=== PATIENT | female | born 1965 | race Caucasian/White ===

== ENCOUNTER → 2017-08-25 16:03 | Outpatient (CLI) | payer MEDICARE, SELFPAY ==
[2017-08-25 17:28] LABS: Absolute Lymphocyte Count 0.81 X10^3/ul (0.83-4.51); Basophil# 0.03 X10^3/uL; Basophil% 0.7 % (0-1); Eosinophil# 0.11 X10^3/uL; Eosinophils% 2.6 % (0-5); Hematocrit 40.7 % (37-47); Hemoglobin 13.4 g/dl (12.0-15.0); Lymphocyte # 0.81 X10^3/ul (4.0); Lymphocyte % 18.9 % (19-41); Mean Corp Hgb Conc 32.9 g/gl (32-36); Mean Corpuscular Hgb 31.1 pg (27.0-32.0); Mean Corpuscular Volume 94.4 fL (81-99); Monocyte# 0.38 X10^3/uL; Monocyte% 8.9 % (0-10); Neutrophil # 2.95 X10^3/uL (2.7-7.7); Neutrophil % 68.9 % (47-70); Platelet Count 197 K/mm3 (150-450); RBC Distribution Width CV 12.8 % (11.6-14.6); RBC Distribution Width SD 44.2 fl (35.1-43.9); Red Blood Count 4.31 M/mm3 (4.2-5.4); White Blood Count 4.3 K/mm3 (4.4-11.0)
[2017-08-25 17:44] LABS: POSITIVE COUNT NO; POSITIVE DIFFERENTIAL NO; POSITIVE MORPHOLOGY NO
[2017-08-25 18:08] LABS: ALB/GLOB Ratio 1.2 RATIO (0.9-2.4); AST(SGOT) 36 U/L (15-37); Alanine Aminotransfer ALT/SGPT 58 U/L (13-56); Albumin, Serum 3.6 g/dL (3.2-5.0); Alkaline Phosphatase 53 U/L (45-117); Anion Gap 9 (5-15); BUN 7 mg/dL (7-18); BUN/Creat Ratio 9.8 RATIO (10-20); Calcium,Total 7.6 mg/dL (8.5-10.1); Chloride 109 mmol/L (98-107); Creatinine, Serum 0.71 mg/dL (0.55-1.02); EST Glomerular Filtration Rate 92 mL/min (>60); Est Glom Filt Rate - Afr Amer 111 mL/min (>60); Globulin 3.1 g/dL (2.2-4.2); Glucose 94 mg/dL (74-106); Potassium 3.2 mmol/L (3.5-5.1); Protein, Total 6.7 g/dL (6.4-8.2); Sodium Level 140 mmol/L (136-145); Thyroid Stim Hormone (TSH) 0.62 uIU/mL (0.358-3.74)
[2017-08-27 11:11] LABS: Hep C Antibodies <0.1 s/co ratio (0.0-0.9)
== END ==
PROVIDERS: Family Provider Family Medicine Geriatric Medicine; PCP Family Medicine Geriatric Medicine; Visit Provider Family Medicine Geriatric Medicine
DX: Z13.89 Encounter for screening for other disorder (principal); I10 Essential (primary) hypertension; R68.83 Chills (without fever)
CPT/HCPCS: 36415; 80053; 84443; 85025; 86803; 87633

== ENCOUNTER → 2017-11-30 16:37 | Outpatient (CLI) | payer MEDICARE, SELFPAY ==
[2017-11-30 17:42] LABS: Absolute Lymphocyte Count 1.31 X10^3/ul (0.83-4.51); Absolute Neutrophil Count 3.9 X10^3/uL (2.0-7.7); Basophil# 0.03 X10^3/uL; Basophil% 0.5 % (0-1); Eosinophil# 0.09 X10^3/uL; Eosinophils% 1.5 % (0-5); Hematocrit 43.2 % (37-47); Hemoglobin 14.3 g/dl (12.0-15.0); Lymphocyte # 1.31 X10^3/ul (4.0); Lymphocyte % 22.1 % (19-41); Mean Corp Hgb Conc 33.1 g/gl (32-36); Mean Corpuscular Hgb 31.6 pg (27.0-32.0); Mean Corpuscular Volume 95.4 fL (81-99); Monocyte# 0.56 X10^3/uL; Monocyte% 9.4 % (0-10); Neutrophil # 3.94 X10^3/uL (2.7-7.7); Neutrophil % 66.3 % (47-70); Platelet Count 207 K/mm3 (150-450); RBC Distribution Width CV 13.3 % (11.6-14.6); Red Blood Count 4.53 M/mm3 (4.2-5.4); White Blood Count 5.9 K/mm3 (4.4-11.0)
[2017-11-30 17:45] LABS: POSITIVE COUNT NO; POSITIVE DIFFERENTIAL NO; POSITIVE MORPHOLOGY NO
[2017-11-30 17:48] LABS: Erythrocyte Sedimentation Rate 5 mm/hr (0-30)
[2017-11-30 18:16] LABS: ALB/GLOB Ratio 1.1 RATIO (0.9-2.4); AST(SGOT) 20 U/L (15-37); Alanine Aminotransfer ALT/SGPT 41 U/L (13-56); Albumin, Serum 3.8 g/dL (3.2-5.0); Alkaline Phosphatase 50 U/L (45-117); Anion Gap 9 (5-15); BUN 14 mg/dL (7-18); BUN/Creat Ratio 21.5 RATIO (10-20); CRP < 2.90 mg/L (0.0-3.0); Calcium,Total 8.7 mg/dL (8.5-10.1); Chloride 103 mmol/L (98-107); Creatinine, Serum 0.65 mg/dL (0.55-1.02); EST Glomerular Filtration Rate 101 mL/min (>60); Est Glom Filt Rate - Afr Amer 123 mL/min (>60); Globulin 3.6 g/dL (2.2-4.2); Glucose 89 mg/dL (74-106); Potassium 4.2 mmol/L (3.5-5.1); Protein, Total 7.4 g/dL (6.4-8.2); Sodium Level 140 mmol/L (136-145)
== END ==
PROVIDERS: Family Provider Family Medicine Geriatric Medicine; PCP Family Medicine Geriatric Medicine; Visit Provider Family Medicine Geriatric Medicine
DX: I10 Essential (primary) hypertension (principal); M35.3 Polymyalgia rheumatica
CPT/HCPCS: 36415; 80053; 84443; 85025; 85652; 86140

== ENCOUNTER → 2017-12-02 16:10 | Outpatient (CLI) | payer MEDICARE, SELFPAY ==
--- NOTE | 2017-12-02 16:16 | US_ITS ---
STUDY: Head/neck soft tissue REASON FOR EXAM: Female, 52 years old. Palpable lump. Tenderness. TECHNIQUE: Ultrasound evaluation of the neck performed with real-time and static gaspar-scale imaging. COMPARISON: None. FINDINGS: On the right there is a level 5 lymph node measuring 0.6 x 0.4 x 0.5 cm. On the left a level 5 lymph node node measures 1.2 x 0.8 x 0.7 cm. US/Head/Neck Soft Tissue IMPRESSION: Mildly enlarged left cervical lymph node. Electronically Signed: Bartolo Anglin MD at 8:02 EDT , Service support ,
== END ==
PROVIDERS: Family Provider Family Medicine Geriatric Medicine; PCP Family Medicine Geriatric Medicine; Visit Provider Family Medicine Geriatric Medicine
DX: R59.0 Localized enlarged lymph nodes (principal)
CPT/HCPCS: 76536

== ENCOUNTER → 2018-03-23 13:06 | Outpatient (CLI) | payer MEDICARE, SELFPAY ==
[2018-03-23 16:46] LABS: Absolute Lymphocyte Count 1.47 X10^3/ul (0.83-4.51); Absolute Neutrophil Count 2.7 X10^3/uL (2.0-7.7); Basophil# 0.03 X10^3/uL; Basophil% 0.6 % (0-1); Eosinophil# 0.12 X10^3/uL; Eosinophils% 2.5 % (0-5); Hemoglobin 14.7 g/dl (12.0-15.0); Lymphocyte # 1.47 X10^3/ul (4.0); Lymphocyte % 30.9 % (19-41); Mean Corp Hgb Conc 34.2 g/gl (32-36); Mean Corpuscular Hgb 31.1 pg (27.0-32.0); Mean Corpuscular Volume 90.9 fL (81-99); Mean Platelet Vol. 10.3 fl (6.2-12.0); Monocyte# 0.46 X10^3/uL; Monocyte% 9.7 % (0-10); Neutrophil # 2.67 X10^3/uL (2.7-7.7); Neutrophil % 56.1 % (47-70); Platelet Count 262 K/mm3 (150-450); RBC Distribution Width CV 11.3 % (11.6-14.6); RBC Distribution Width SD 37.7 fl (35.1-43.9); Red Blood Count 4.73 M/mm3 (4.2-5.4); White Blood Count 4.8 K/mm3 (4.4-11.0)
[2018-03-23 16:59] LABS: POSITIVE COUNT NO; POSITIVE DIFFERENTIAL NO; POSITIVE MORPHOLOGY NO
[2018-03-23 17:04] LABS: ALB/GLOB Ratio 1.2 RATIO (0.9-2.4); AST(SGOT) 16 U/L (15-37); Alanine Aminotransfer ALT/SGPT 32 U/L (13-56); Albumin, Serum 3.8 g/dL (3.2-5.0); Alkaline Phosphatase 51 U/L (45-117); Anion Gap 6 (5-15); BUN 7 mg/dL (7-18); BUN/Creat Ratio 9.3 RATIO (10-20); Calcium,Total 8.3 mg/dL (8.5-10.1); Chloride 103 mmol/L (98-107); Creatinine, Serum 0.75 mg/dL (0.55-1.02); EST Glomerular Filtration Rate 86 mL/min (>60); Est Glom Filt Rate - Afr Amer 104 mL/min (>60); Globulin 3.3 g/dL (2.2-4.2); Glucose 88 mg/dL (74-106); Potassium 3.8 mmol/L (3.5-5.1); Protein, Total 7.1 g/dL (6.4-8.2); Sodium Level 133 mmol/L (136-145); Thyroid Stim Hormone (TSH) 0.89 uIU/mL (0.358-3.74)
== END ==
PROVIDERS: Family Provider Family Medicine Geriatric Medicine; PCP Family Medicine Geriatric Medicine; Visit Provider Family Medicine Geriatric Medicine
DX: I10 Essential (primary) hypertension (principal)
CPT/HCPCS: 36415; 80053; 84443; 85025

== ENCOUNTER → 2018-06-21 13:35 | Outpatient (CLI) | payer MEDICARE, SELFPAY ==
[2018-06-21 16:43] LABS: AST(SGOT) 15 U/L (15-37); Alanine Aminotransfer ALT/SGPT 31 U/L (13-56); Albumin, Serum 3.4 g/dL (3.2-5.0); Alkaline Phosphatase 54 U/L (45-117); Anion Gap 9 (5-15); BUN 7 mg/dL (7-18); BUN/Creat Ratio 10.8 RATIO (10-20); Calcium,Total 8.1 mg/dL (8.5-10.1); Chloride 107 mmol/L (98-107); Creatinine, Serum 0.65 mg/dL (0.55-1.02); EST Glomerular Filtration Rate 102 mL/min (>60); Est Glom Filt Rate - Afr Amer 123 mL/min (>60); Globulin 3.5 g/dL (2.2-4.2); Glucose 81 mg/dL (74-106); Potassium 4.1 mmol/L (3.5-5.1); Protein, Total 6.9 g/dL (6.4-8.2); Sodium Level 138 mmol/L (136-145); Thyroid Stim Hormone (TSH) 0.41 uIU/mL (0.358-3.74)
[2018-06-21 17:18] LABS: Absolute Lymphocyte Count 1.63 X10^3/ul (0.83-4.51); Absolute Neutrophil Count 3.9 X10^3/uL (2.0-7.7); Basophil# 0.04 X10^3/uL; Basophil% 0.6 % (0-1); Eosinophils% 3.2 % (0-5); Hematocrit 42.9 % (37-47); Hemoglobin 14.3 g/dl (12.0-15.0); Lymphocyte # 1.63 X10^3/ul (4.0); Lymphocyte % 25.7 % (19-41); Mean Corp Hgb Conc 33.3 g/gl (32-36); Mean Corpuscular Hgb 30.1 pg (27.0-32.0); Mean Corpuscular Volume 90.3 fL (81-99); Monocyte# 0.52 X10^3/uL; Monocyte% 8.2 % (0-10); Neutrophil # 3.94 X10^3/uL (2.7-7.7); Neutrophil % 62.1 % (47-70); Platelet Count 313 K/mm3 (150-450); RBC Distribution Width CV 12.6 % (11.6-14.6); RBC Distribution Width SD 41.7 fl (35.1-43.9); Red Blood Count 4.75 M/mm3 (4.2-5.4); White Blood Count 6.3 K/mm3 (4.4-11.0)
[2018-06-21 17:24] LABS: POSITIVE COUNT NO; POSITIVE DIFFERENTIAL NO; POSITIVE MORPHOLOGY NO
== END ==
LOC: POLAB3 13:37 → PSN 15:14
PROVIDERS: Family Provider Family Medicine Geriatric Medicine; PCP Family Medicine Geriatric Medicine; Referring Provider Family Medicine Geriatric Medicine; Visit Provider Family Medicine Geriatric Medicine
DX: I10 Essential (primary) hypertension (principal); R68.83 Chills (without fever)
CPT/HCPCS: 36415; 80053; 84443; 85025; 87633

== ENCOUNTER → 2018-06-23 11:05 | Outpatient (CLI) | payer MEDICARE, SELFPAY | PROVIDERS: Family Provider Family Medicine Geriatric Medicine; PCP Family Medicine Geriatric Medicine; Referring Provider Family Medicine Geriatric Medicine; Visit Provider Family Medicine Geriatric Medicine | DX: R19.7 Diarrhea, unspecified (principal) | CPT/HCPCS: 82274; 83630; 87177; 87209; 87493; 87506 ==

== ENCOUNTER → 2018-08-18 16:33 | Outpatient (CLI) | payer MEDICARE, SELFPAY ==
[2018-08-25 11:18] LABS: HPV HC, High Risk Positive (Negative)
[2018-08-25 12:11] LABS: HPV Reflexed? YES, CHARGE PATIENT
== END ==
PROVIDERS: Family Provider Family Medicine Geriatric Medicine; PCP Family Medicine Geriatric Medicine; Referring Provider Obstetrics & Gynecology; Visit Provider Obstetrics & Gynecology
DX: Z12.4 Encounter for screening for malignant neoplasm of cervix (principal)
CPT/HCPCS: 87624; 88175; G0145

== ENCOUNTER → 2018-08-21 13:44 | Outpatient (CLI) | payer MEDICARE, SELFPAY ==
--- NOTE | 2018-08-21 13:48 | BI_ITS ---
MAMMOGRAPHY - BILATERAL DIAGNOSTIC REASON FOR EXAM: Female, 53 years old. Painful right breast lump. PERTINENT HISTORY: Grandmother with breast cancer. TECHNIQUE: Digital bilateral breast siria (3D mammographic acquisition) in the CC and MLO projections. 2-D mediolateral oblique (MLO) and craniocaudad (CC) views of both breasts were obtained. CAD: Full Field Digital Mammography with Computer Added Detection was performed. COMPARISON: Comparison is made with prior study April 16, 2016 and September 04, 2014 FINDINGS: Breast Composition: The breasts are heterogeneously dense, which may obscure small masses. There is a 1.9 cm x 1.9 cm well-defined nodule in the superior retroareolar region of the right breast. There is also evidence of a 1.7 cm x 1.6 cm nodule in the upper lateral portion of the left breast. These were seen on prior examination. Correlation with ultrasound is recommended for further evaluation. No other significant abnormalities are identified. BI/DIAG MAMM W/CAD, BILAT IMPRESSION: Bilateral breast nodules as described. Correlation with ultrasound is recommended. ASSESSMENT CATEGORY: BIRADS Category 0: Incomplete. Need additional imaging evaluation. A letter regarding these results will be sent to the patient by the facility within 30 days. Approximately 10% of breast cancers are not detected by mammography. A normal mammogram should not delay biopsy of a clinically suspicious abnormality. Electronically Signed: Austin Waters, at 12:44 EST , Service support ,
--- NOTE | 2018-08-21 13:58 | US_ITS ---
STUDY: ULTRASOUND BREAST - RIGHT REASON FOR EXAM: Female, 53 years old. Abnormal screening mammogram. History of bilateral breast cysts. TECHNIQUE: Axial and longitudinal images of the RIGHT breast were performed with a high resolution ultrasound transducer. COMPARISON: Comparison is made with prior mammogram dated August 21, 2018 and prior ultrasound of the right breast dated April 16, 2016. FINDINGS: RIGHT Breast: Once again, multiple cysts are seen in the right breast. The largest measures 1.8 cm x 1.5 cm x 1.3 cm. This is at the 12:00 position of the breast at 2 cm from the nipple. IMPRESSION: Multiple cysts. ASSESSMENT CATEGORY: BIRADS Category 2: Benign. A letter regarding these results will be sent to the patient by the facility within 30 days. Electronically Signed: Austin Jt, at 9:45 EST , Service support , STUDY: ULTRASOUND BREAST - LEFT REASON FOR EXAM: Female, 53 years old. Abnormal screening mammogram. TECHNIQUE: Axial and longitudinal images of the LEFT breast were performed with a high resolution ultrasound transducer. COMPARISON: Comparison is made with prior mammogram dated August 21, 2018 and prior ultrasound the left breast dated September 04, 2014. FINDINGS: LEFT Breast: There is a 1.4 cm x 1.2 cm x 1 cm cyst at the 3:00 position of the breast at 3 cm from nipple. US/Breast Limited Unilateral IMPRESSION: 1.4 cm x 1.2 cm x 1 cm cyst at the 3:00 position of the breast at 3 cm from the nipple. ASSESSMENT CATEGORY: BIRADS Category 2: Benign. A letter regarding these results will be sent to the patient by the facility within 30 days. Electronically Signed: Austin Waters, at 9:46 EST , Service support ,
== END ==
PROVIDERS: Family Provider Family Medicine Geriatric Medicine; PCP Family Medicine Geriatric Medicine; Referring Provider Obstetrics & Gynecology; Visit Provider Obstetrics & Gynecology
DX: N63.11 Unspecified lump in the right breast, upper outer quadrant (principal); R92.8 Other abnormal and inconclusive findings on diagnostic imaging of breast
CPT/HCPCS: 76642; 77062; 77063; 77066; G0279

== ENCOUNTER → 2018-09-01 16:14 | Outpatient (CLI) | payer MEDICARE, SELFPAY ==
--- NOTE | 2018-09-01 | IMM_PTH ---
PATIENT: JAM MUNOZ LOC: [facility] U#:[id number] AGE/SX: 60/F ROOM: RE09/01/[address]: [address]. Jerome Aguilar MD : 1965 BED: DIS: SPEC #: [id number] RECD: 09/05/18 12:32 STATUS: RAMONA REQ #: [id number] SHAWNA: 09/01/18 00:[address]: Jerome Aguilar DEPT: IMMUNOHISTOCHEMISTRY RECD BY: Abril Chavez ENTERED: 09/05/18 12:33 SP TYPE: IMMUNO OTHR DR: Dr. Chito Coombs MD Tissues: Endocervical Procedures: p16 (initial) KI-67 (add) PHYSICIAN & INSTITUTION [place] [address] SPECIMEN INFORMATION: Tissue Source: Endocervical Clinical Info: ASCUS, positive HPV Specimen Number: [id number] CPT code: 78097, 94062 METHODOLOGY: Deparaffinized sections of prefer/formalin-fixed tissue or PAP/DQ stained slides are incubated with monoclonal/polyclonal antibodies/oligonucleotide probes. Localization is made via biotin free immunoperoxidase method. Appropriate controls are performed and reacted as expected. Results on target cell population are indicated in the following table: RESULTS: ANTIBODY / CLONE RESULT P16 (E6H4) positive, patchy Ki-67 (30-9) positive, low These tests were developed and their performance characteristics determined by [facility]. They may not have been cleared or approved by the U.S. Food and Drug Administration. The FDA has determined that such clearance or approval is not necessary. INTERPRETATION: ECC: Focal changes consistent with HPV cytopathic effects. SJ:arnol 09/05/18
--- NOTE | 2018-09-01 14:00 | ECC_PTH ---
PATIENT: JAM MUNOZ LOC: [facility] U#:[id number] AGE/SX: 60/F ROOM: RE09/01/[address]: Dr. Jerome Aguilar MD : 1965 BED: DIS: SPEC #: [id number] RECD: 09/01/18 15:37 STATUS: RAMONA REShira #: [id number] SHAWNA: 09/01/18 14:[address]: Jerome Aguilar DEPT: SURGICAL PATHOLOGY RECD BY: Maikel Andrade ENTERED: 09/04/18 09:08 SP TYPE: ECC OTHR DR: Dr. Chito Coombs MD Tissues: Endocervical Procedures: Surgery Specimen Level IV HEADER OPERATION: ECC PRE-OP DIAGNOSIS: ASCUS, positive HPV TISSUE SUBMITTED: Endocervical MICROSCOPIC DIAGNOSIS ECC: Focal changes consistent with HPV cytopathic effects. Fragments of benign endocervical mucosa with chronic inflammation, blood and mucous. See comment. SJ:arnol 09/05/18 COMMENT Immunohistochemistry ([id number]) for surrogate HPV marker (p16) supports the above diagnosis. MICROSCOPIC DESCRIPTION Slides are reviewed. GROSS DESCRIPTION Received in fixative is one container labeled with the patient's name and designated ECC. The specimen consists of multiple irregular fragments of loving mucoid tissue that in aggregate measure 2.5 x 0.3 x 0.1 cm. The specimen is totally submitted in one cassette. / NIRU:arnol 09/04/18 TC:5 CPT: 60608
== END ==
PROVIDERS: Family Provider Family Medicine Geriatric Medicine; PCP Family Medicine Geriatric Medicine; Referring Provider Obstetrics & Gynecology; Visit Provider Obstetrics & Gynecology
DX: R87.610 Atypical squamous cells of undetermined significance on cytologic smear of cervix (ASC-US) (principal); R87.810 Cervical high risk human papillomavirus (HPV) DNA test positive
CPT/HCPCS: 88305; 88341; 88342

== ENCOUNTER → 2018-09-21 13:46 | Outpatient (CLI) | payer MEDICARE, SELFPAY ==
[2018-09-21 14:31] LABS: Absolute Lymphocyte Count 1.42 X10^3/ul (0.83-4.51); Absolute Neutrophil Count 3.9 X10^3/uL (2.0-7.7); Basophil# 0.02 X10^3/uL; Basophil% 0.3 % (0-1); Eosinophil# 0.11 X10^3/uL; Eosinophils% 1.8 % (0-5); Hematocrit 40.4 % (37-47); Hemoglobin 13.4 g/dl (12.0-15.0); Lymphocyte # 1.42 X10^3/ul (4.0); Lymphocyte % 23.2 % (19-41); Mean Corp Hgb Conc 33.2 g/gl (32-36); Mean Corpuscular Hgb 29.3 pg (27.0-32.0); Mean Corpuscular Volume 88.4 fL (81-99); Monocyte# 0.64 X10^3/uL; Monocyte% 10.5 % (0-10); Neutrophil # 3.92 X10^3/uL (2.7-7.7); Platelet Count 325 K/mm3 (150-450); RBC Distribution Width CV 12.7 % (11.6-14.6); RBC Distribution Width SD 40.3 fl (35.1-43.9); Red Blood Count 4.57 M/mm3 (4.2-5.4); White Blood Count 6.1 K/mm3 (4.4-11.0)
[2018-09-21 14:33] LABS: POSITIVE COUNT NO; POSITIVE DIFFERENTIAL NO; POSITIVE MORPHOLOGY NO
[2018-09-21 15:08] LABS: ALB/GLOB Ratio 0.9 RATIO (0.9-2.4); AST(SGOT) 14 U/L (15-37); Alanine Aminotransfer ALT/SGPT 19 U/L (13-56); Albumin, Serum 3.4 g/dL (3.2-5.0); Alkaline Phosphatase 54 U/L (45-117); Anion Gap 9 (5-15); BUN 9 mg/dL (7-18); BUN/Creat Ratio 11.2 RATIO (10-20); Calcium,Total 8.5 mg/dL (8.5-10.1); Chloride 102 mmol/L (98-107); EST Glomerular Filtration Rate 79 mL/min (>60); Est Glom Filt Rate - Afr Amer 96 mL/min (>60); Globulin 3.7 g/dL (2.2-4.2); Glucose 104 mg/dL (74-106); Potassium 4.4 mmol/L (3.5-5.1); Protein, Total 7.1 g/dL (6.4-8.2); Sodium Level 135 mmol/L (136-145)
== END ==
PROVIDERS: Family Provider Family Medicine Geriatric Medicine; PCP Family Medicine Geriatric Medicine; Visit Provider Family Medicine Geriatric Medicine
DX: I10 Essential (primary) hypertension (principal)
CPT/HCPCS: 36415; 80053; 84443; 85025

== ENCOUNTER → 2019-11-08 15:47 | Outpatient (CLI) | payer MEDICARE, SELFPAY ==
[2019-11-13 20:45] LABS: HPV Reflexed? NOT INDICATED
== END ==
PROVIDERS: PCP Family Medicine Geriatric Medicine; Visit Provider Obstetrics & Gynecology
DX: R87.610 Atypical squamous cells of undetermined significance on cytologic smear of cervix (ASC-US) (principal); Z12.4 Encounter for screening for malignant neoplasm of cervix
CPT/HCPCS: 88175; G0145

== ENCOUNTER → 2019-11-20 08:31 | Outpatient (CLI) | payer MEDICARE, SELFPAY ==
--- NOTE | 2019-11-20 08:33 | BI_ITS ---
MAMMOGRAPHY - BILATERAL SCREENING REASON FOR EXAM: Female, 54 years old. Routine annual screening examination. PERTINENT HISTORY: Grandmother with breast cancer. TECHNIQUE: Digital bilateral breast bertha (3D mammographic acquisition) in the CC and MLO projections. 2-D mediolateral oblique (MLO) and craniocaudad (CC) views of both breasts were obtained. CAD: Full Field Digital Mammography with Computer Added Detection was performed. COMPARISON: Comparison is made with prior study dated August 21, 2018 and April 16, 2016. FINDINGS: Breast Composition: The breasts are heterogeneously dense, which may obscure small masses. The previously seen palpable abnormality in the retroareolar region of the right breast is not seen at this time. The previously seen nodular density in the upper-outer quadrant of the left breast has decreased in size. The present measures 8.4 mm. No other significant abnormalities are identified. BI/SCREEN MAMM (CAD) W/BERTHA BILAT IMPRESSION: Interval decrease in size of the previously seen bilateral breast nodules. Yearly follow-up mammogram recommended. (A) ASSESSMENT CATEGORY: BIRADS Category 2: Benign. A letter regarding these results will be sent to the patient by the facility within 30 days. Approximately 10% of breast cancers are not detected by mammography. A normal mammogram should not delay biopsy of a clinically suspicious abnormality. [id number] Electronically Signed: Austin Waters, at 12:24 EDT , Service support ,
== END ==
PROVIDERS: PCP Student in an Organized Health Care Education/Training Program; Referring Provider Obstetrics & Gynecology; Visit Provider Obstetrics & Gynecology
DX: Z12.31 Encounter for screening mammogram for malignant neoplasm of breast (principal)
CPT/HCPCS: 77063; 77067

== ENCOUNTER → 2020-12-11 | Day surgery (SDC) | payer MEDICARE, SELFPAY ==
[2020-12-11 10:21] VITALS: BP 129/91; PULSE 94; RESP 16; TEMP 36.9; O2SAT 97
== END | disposition home or self-care (01) ==
PROVIDERS: PCP Student in an Organized Health Care Education/Training Program; Referring Provider Surgery; Visit Provider Surgery
PROC: F00ZJWZ Instrumental Swallowing and Oral Function Assessment using Swallowing Equipment (ICD-10-PCS; CPT 43235; principal; 2020-12-11 09:55)
DX: K21.9 Gastro-esophageal reflux disease without esophagitis (principal)
CPT/HCPCS: 91010; 87426; C9803

== ENCOUNTER → 2022-07-15 | Outpatient (CLI) | payer MEDICARE, SELFPAY ==
[2022-07-15 14:02] LABS: Estradiol 38.2 pg/mL; Follicle Stimulating Hormone 90.8 mIU/mL; Luteinizing Hormone 58.2 mIU/mL
[2022-07-20 13:07] LABS: Testosterone, Free 0.24 ng/dL (0.10-0.85); Testosterone, Total 23 ng/dL (4-50)
[2022-07-20 20:23] LABS: Testosterone, % Free 1.04 % (0.50-2.80)
[2022-07-21 21:34] LABS: HPV APTIMA, High Risk Negative (Negative)
== END | disposition home or self-care (01) ==
LOC: LABSPEC 11:51 → LAB 11:53
PROVIDERS: PCP Student in an Organized Health Care Education/Training Program; Visit Provider Obstetrics & Gynecology
DX: N95.0 Postmenopausal bleeding (principal); Z12.4 Encounter for screening for malignant neoplasm of cervix
CPT/HCPCS: 36415; 82670; 83001; 83002; 84402; 84403; 87624; 88175; G0145

== ENCOUNTER → 2022-07-20 | Outpatient (CLI) | payer MEDICARE, SELFPAY ==
--- NOTE | 2022-07-20 14:13 | US_ITS ---
STUDY: ULTRASOUND OF THE FEMALE PELVIS - COMPLETE REASON FOR EXAM: Female, 57 years old. PMB TECHNIQUE: Endovaginal. Transvaginal US was obtained to better visualized the ovaries. COMPARISON: ct 3.31.14 FINDINGS: The uterus is anteverted and is in a midline position. The uterus measures 7.1x4.7 cm. Normal uterine cervix. The endometrium measures 3.7 mm in thickness, and is heterogeneous (striated). There is no demonstrated endometrial mass. Fibroid visualized measuring 12 x 11 mm. This is near the endometrial canal. Heterogeneous uterus. I.U.D. - The patient does not have an I.U.D. There is nonvisualization of the right ovary due to overlying bowel gas. The left ovary is visualized. The left ovary measures 2.1 cm. There is no left ovarian cyst or ovarian mass. There is no visualized left adnexal mass or complex lesion. There is normal arterial and normal venous vascularity. There is no fluid in the cul-de-sac. Urinary bladder volume is (in cc) 291. US/Pelvic (Non ) IMPRESSION: Question fibroid uterus. Electronically Signed: Sudeep Donahue MD at 18:57 EST ,
== END | disposition home or self-care (01) ==
PROVIDERS: PCP Student in an Organized Health Care Education/Training Program; Referring Provider Obstetrics & Gynecology; Visit Provider Obstetrics & Gynecology
DX: N95.0 Postmenopausal bleeding (principal)
CPT/HCPCS: 76830; 76856

== ENCOUNTER 2022-09-07 17:07 | Emergency (ER) | payer MEDICARE, SELFPAY ==
[2022-09-07 17:08] VITALS: BP 161/97; PULSE 96; RESP 18; TEMP 36.1; O2SAT 98; BMI 25.9
--- NOTE | 2022-09-07 17:41 | ED.VIS.BACK ---
HPI History of Present Illness Chief Complaint: Back Detail of Chief Complaint: Right back pain Informant: patient Narrative Narrative: Patient presents with severe right back pain is keeping her up at night. Patient states she had pain initially 3 weeks ago lasted about 5 days and then went away. Pain came back and for the last several days has been unbearable. She went to urgent care and was referred to the ER. She denies any injury to her back. She denies pain rating down her legs. She is not had any loss of bowel or bladder function. She denies dysuria. She denies fever or chills or sweats. Pain is not pleuritic. Sometimes holding pressure on to her back makes it feel better. Prior similar symptoms: Yes PFSH PFSH Medical History Abnormal Pap smear of cervix Anxiety and depression Back pain Fibrocystic breast changes of both breasts GERD (gastroesophageal reflux disease) HTN (hypertension) Home Medications trazodone 100 mg tablet 100 mg PO QHS PRN 07/15/22 [History Last Taken Unknown] hydrocodone-acetaminophen 5-325mg 5mg-325mg 1 tab PO Q4H PRN PRN Pain 2 days #15 TABLETS 09/07/22 [Rx Last Taken Unknown] naproxen 500 mg tablet 500 mg PO BID #14 tabs 09/07/22 [Rx Last Taken Unknown] Allergy/AdvReac Type Severity Reaction Status Date / Time No Known Allergies Allergy Verified 09/07/22 17:09 Family History Mother Diabetes Hypertension CVA (cerebral vascular accident) Grandmother Breast cancer Surgical History History of ankle surgery History of bladder surgery History of section S/P appendectomy S/P tonsillectomy Status post colposcopy Social History Smoking Status: Never smoker alcohol intake: current details: struggled for several years, resarted x6 months, none for few weeks substance use type: does not use caffeine: Yes what type of physical activity do you participate in: none seatbelt use: sometimes do you feel safe at home: Yes additional social history: Single ROS ROS ED Review of Systems ROS Unobtainable: other Constitutional Constitutional ED: Reports lethargy; Denies chills, fever(s), sweats or weight loss Eyes Eyes: Denies blurry vision, change in vision or diplopia ENT ENT ED: Denies rhinorrhea or sore throat Cardiovascular Cardiovascular: Denies chest pain, orthopnea or racing heartbeat Respiratory/Chest Respiratory/Chest: Denies cough, dyspnea, dyspnea on exertion, orthopnea or sputum Gastrointestinal Gastrointestinal: Denies abdominal pain, diarrhea, nausea or vomiting Genitourinary Genitourinary ED: Denies dysuria, hematuria or urinary frequency Musculoskeletal Musculoskeletal: Reports back pain; Denies arthralgias, myalgias or neck pain Integumentary Denies abscess, Abrasions or rash Neurologic Neurologic: Denies headache(s) or weakness Psychiatric Psychiatric: Denies anxiety, depression or suicidal thoughts Endocrine Endocrinology: Denies polydipsia, polyphagia or polyuria Hematologic/Lymphatic Hematologic/Lymphatic: Denies easy bleeding, easy bruising or lymphadenopathy Allergic/Immunologic Allergic/Immunologic ED: Denies mouth swelling, tongue swelling or urticaria EXAM Physical Exam Const Vital Signs: 09/07/22 17:08 Temperature 97 F L Temperature Source Temporal Pulse Rate 96 Respiratory Rate 18 Blood Pressure 161/97 H Blood Pressure Mean 118 Pulse Ox 98 Oxygen Delivery Method Room Air Positive well nourished and well developed General Appearance ED: well developed and NAD HEENT Reports TM's clear and moist mucous membranes normocephalic and atraumatic; Negative for trauma or tenderness Tympanic Membrane ED: Yes TM's clear Eyes PERRL and EOMs intact bilaterally General Eye ED: Negative for pale conjunctiva or scleral icterus Neck no lymphadenopathy, supple and no JVD General: Negative for tenderness Chest Wall inspection of chest normal and palpation of chest normal Chest: Negative for tenderness Resp normal respiratory effort and clear to auscultation bilaterally Effort and Inspection: Negative for respiratory distress or pain with movement Auscultation: Negative for rhonchi, wheezes or diminished lung sounds Cardio regular rate, regular rhythm, S1 normal heart sound, S2 normal heart sound and no murmurs Peripheral Pulses: pulses 2+ throughout GI normal to inspection, nondistended, normoactive bowel sounds, soft to palpation, non-tender, non-distended and no masses Back/Spine no CVA tenderness and no thoracic nor lumbar tenderness Back/Spine Narrative: Patient has tenderness palpation over the right posterior ribs mid thoracic region. No erythema or warmth noted. No masses palpated. She has negative straight leg raises. Deep tendon reflexes plus 2 out of 4 bilaterally at the patella and Achilles. Patient has normal L5 extension. Normal sensation to light touch. Extremity normal to inspection General Extremety ED: Negative for edema General Extremity: Negative for edema Neuro oriented x3, CN's II-XII intact bilaterally, no sensory deficits noted and gait normal Sensorium / Orientation: awake, alert, oriented to person, oriented to place and oriented to time Motor Exam: strength 5/5 throughout and strength abnormal Psych mental status grossly normal Skin no rashes or lesions noted and no wounds MDM MDM MDM Narrative Medical decision making narrative: Patient presents with back pain over the right posterior ribs. I did medicate her with morphine and Zofran. Urinalysis was normal. D-dimer normal. CBC with differential and chemistries also normal. I did do x-rays of the right ribs and chest x-ray and they were unremarkable. Given the pain over the ribs wanted to rule out any lytic lesions or lung masses potentially. Patient will be discharged to home given a prescription for naproxen and [place]. She has tizanidine at home. Patient advised to follow-up with her primary care physician next 5 to 7 days. Advised to return if worsening pain or condition worsening way. I suspect pain is musculoskeletal. History & Record Review Discussion w/independent historian: Patient Lab Data Labs: Laboratory Results - last 24 hr 09/07/22 09/07/22 09/07/22 17:00 17:00 17:00 WBC 6.8 RBC 5.08 Hgb 15.5 H Hct 45.0 MCV 88.6 MCH 30.5 MCHC 34.4 RDW Std Deviation 39.1 RDW Coeff of Rommel 12.1 Plt Count 344 MPV 9.0 Immature Gran % (Auto) 0.300 Neut % (Auto) 61.9 Lymph % (Auto) 23.9 [place] % (Auto) 11.0 H Eos % (Auto) 1.9 Baso % (Auto) 1.0 Absolute Neuts (auto) 4.2 Absolute Lymphs (auto) 1.63 Nucleated RBC % 0 D-Dimer Quant (PE/DVT) 0.32 Sodium 138 Potassium 3.7 Chloride 104 Carbon Dioxide 26.0 Anion Gap 8 BUN 5 L Creatinine 0.87 Estim Creat Clear Calc 56.43 Est GFR (MDRD) Af Amer 86 Est GFR (MDRD) Non-Af 71 BUN/Creatinine Ratio 5.7 L Glucose 88 Calcium 9.3 Urine Color Urine Clarity Urine pH Ur Specific [place] Urine Protein Urine Glucose (UA) Urine Ketones Urine Occult Blood Urine Nitrite Urine Bilirubin Urine Urobilinogen Ur Leukocyte Esterase Urine RBC Urine WBC Ur Squamous Epith Cells Urine Bacteria Urine Mucus 09/07/22 18:38 WBC RBC Hgb Hct MCV MCH MCHC RDW Std Deviation RDW Coeff of Rommel Plt Count MPV Immature Gran % (Auto) Neut % (Auto) Lymph % (Auto) [place] % (Auto) Eos % (Auto) Baso % (Auto) Absolute Neuts (auto) Absolute Lymphs (auto) Nucleated RBC % D-Dimer Quant (PE/DVT) Sodium Potassium Chloride Carbon Dioxide Anion Gap BUN Creatinine Estim Creat Clear Calc Est GFR (MDRD) Af Amer Est GFR (MDRD) Non-Af BUN/Creatinine Ratio Glucose Calcium Urine Color Yellow Urine Clarity Clear Urine pH 6.5 Ur Specific [place] 1.010 Urine Protein Negative Urine Glucose (UA) Normal Urine Ketones 15 H Urine Occult Blood Negative Urine Nitrite Negative Urine Bilirubin Negative Urine Urobilinogen Normal Ur Leukocyte Esterase Negative Urine RBC 0 SEEN Urine WBC 0-5 SEEN Ur Squamous Epith Cells 0-5 SEEN Urine Bacteria 0 SEEN Urine Mucus 0 SEEN Radiography Diagnostic Testing: Clinical Impression(s) from Imaging Studies Ribs w/Chest X-Ray 09/07/22 18:10 IMPRESSION: RIBS: Normal x-ray examination of the ribs. CHEST: Normal x-ray examination of the chest. Electronically Signed: Amor Hughes DO at 18:26 EDT Reading Location ID and State: [address] [place] [address] Tel [phone], Service support , Discharge Plan Triage Chief Complaint: Back ED Provider: Waleska Banda Dx/Rx/DC Orders Clinical Impression: Back pain Instructions: ED Back Pain (Acute or Chronic) Prescriptions: New hydrocodone-acetaminophen [hydrocodone-acetaminophen] 5-325 mg tablet 1 tab PO Q4H PRN PRN (Reason: Pain) 2 Days Qty: 15 0RF naproxen 500 mg tablet 500 mg PO BID Qty: 14 0RF No Action trazodone 100 mg tablet 100 mg PO QHS PRN Primary Care Provider: Chepe Biswas Referrals: Chepe Biswas DO [Primary Care Provider] - 5-7 Days Disposition Disposition: Home, Self Care
[2022-09-07] MEDS: Ondansetron 4 MG/2 ML Vial IV (17:55)
[2022-09-07] MEDS: Morphine 4 MG/ML Syringe IV (17:55)
--- NOTE | 2022-09-07 18:10 | RAD_ITS ---
STUDY: X-RAY - UNILATERAL RIBS ( RIGHT ) WITH CHEST REASON FOR EXAM: Female, 57 years old. Back spasms beginning at 3:00 AM. Pain. TECHNIQUE - RIBS: 3 view(s) of the ribs. TECHNIQUE - CHEST: Single PA view of the chest. COMPARISON: None. FINDINGS - RIBS: Normal visualized ribs without a demonstrated fracture. FINDINGS - CHEST: The lungs are clear and expanded. There is no demonstrated pleural abnormality. Normal size heart. Normal mediastinum and dorcas. Normal visualized pulmonary arteries. Normal visualized aortic arch and descending thoracic aorta. Normal visualized thoracic spine. Normal visualized ribs, clavicles, and shoulders. There is no demonstrated abnormality of the visualized soft tissue structures of the upper abdomen. RAD/Ribs Uni Min 3V w/PA Chest IMPRESSION: RIBS: Normal x-ray examination of the ribs. CHEST: Normal x-ray examination of the chest. Electronically Signed: Amor Hughes DO at 18:26 EDT ,
[2022-09-07 18:17] LABS: Absolute Lymphocyte Count 1.63 X10^3/uL (0.83-4.51); Absolute Neutrophil Count 4.2 X10^3/uL (2.0-7.7); Basophil# 0.07 X10^3/uL; Eosinophil# 0.13 X10^3/uL; Eosinophils% 1.9 % (0-5); Hemoglobin 15.5 g/dL (12.0-15.0); Lymphocyte # 1.63 X10^3/ul (0.83-4.51); Lymphocyte % 23.9 % (19-41); Mean Corp Hgb Conc 34.4 g/dL (32-36); Mean Corpuscular Hgb 30.5 pg (27.0-32.0); Mean Corpuscular Volume 88.6 fL (81-99); Monocyte# 0.75 X10^3/uL; NRBC Flagged by Analyzer 0 % (0-5); Neutrophil # 4.23 X10^3/uL (2.7-7.7); Neutrophil % 61.9 % (47-70); Platelet Count 344 K/mm3 (150-450); RBC Distribution Width CV 12.1 % (11.6-14.6); RBC Distribution Width SD 39.1 fl (35.1-43.9); Red Blood Count 5.08 M/mm3 (4.2-5.4); White Blood Count 6.8 K/mm3 (4.4-11.0)
[2022-09-07 18:31] LABS: Anion Gap 8 (5-15); BUN 5 mg/dL (7-18); BUN/Creat Ratio 5.7 RATIO (10-20); Calcium,Total 9.3 mg/dL (8.5-10.1); Chloride 104 mmol/L (98-107); Creatinine, Serum 0.87 mg/dL (0.55-1.02); EST Glomerular Filtration Rate 71 mL/min (>60); Est Glom Filt Rate - Afr Amer 86 mL/min (>60); Estimated Creatinine Clearance 56.43 ml/min; Glucose 88 mg/dL (74-106); Potassium 3.7 mmol/L (3.5-5.1); Sodium Level 138 mmol/L (136-145)
[2022-09-07 18:37] LABS: D-Dimer Quantitative (DVT/PE) 0.32 FEU/ug/m (0.27-0.49)
[2022-09-07 18:44] LABS: Bacteria 0 SEEN /hpf (None Seen); Mucous, Urine 0 SEEN /hpf (<or=2+); Red Blood Cells-Urine 0 SEEN /hpf (0-5)
[2022-09-07 18:55] LABS: Color, Urine Yellow (Yellow); Glucose, Dipstick Normal (Normal); Ketone-Dipstick 15 mg/dl (Negative); Leukocyte Esterase-Dipstick Negative /ul (Negative); Nitrite-Dipstick Negative (Negative); Occult Blood-Urine Negative /ul (Negative); Protein-Dipstick Negative (Negative); Urine Bilirubin Dipstick Negative (Negative); Urine Clarity Clear (Clear); Urine Urobilinogen Normal (Normal); Urine pH 6.5 (5.0 - 8.0)
[2022-09-07 19:02] LABS: Squamous Epithelial Cells - UA 0-5 SEEN /hpf (5-10); White Blood Cells 0-5 SEEN /hpf (0-5)
[2022-09-07 19:53] VITALS: BP 132/67; PULSE 74; RESP 18; O2SAT 100
== END 2022-09-07 20:49 | disposition home or self-care (01) ==
PROVIDERS: Emergency Provider Emergency Medicine; PCP Student in an Organized Health Care Education/Training Program; Visit Provider Emergency Medicine
DX: M54.9 Dorsalgia, unspecified (principal)
CPT/HCPCS: 71101; 80048; 81001; 85025; 85379; 96374; 96375; 99283; A4216; J2405

== ENCOUNTER → 2023-06-08 | Outpatient (CLI) | payer MEDICARE, SELFPAY ==
[2023-06-08 13:47] LABS: Lipase 43 U/L (13-75)
== END | disposition home or self-care (01) ==
PROVIDERS: PCP Student in an Organized Health Care Education/Training Program; Visit Provider Nurse Practitioner Family
DX: R10.84 Generalized abdominal pain (principal)
CPT/HCPCS: 83690

== ENCOUNTER 2023-12-03 12:12 | Emergency (ER) | payer MEDICARE, SELFPAY ==
[2023-12-03 12:12] VITALS: BP 147/131; PULSE 91; RESP 22; TEMP 35.9; O2SAT 96; BMI 23.1
[2023-12-03] MEDS: Ondansetron ODT 4 MG Tablet PO (12:40)
[2023-12-03] MEDS: Ketorolac 30 MG/ML Syringe IM (12:40)
[2023-12-03] MEDS: morphine 10 MG/ML Syringe 4 MG SC (12:41)
[2023-12-03] MEDS: predniSONE 20 MG Tablet 60 MG PO (12:41)
--- NOTE | 2023-12-03 12:48 | ED.VIS.BACK ---
HPI <JESSI Davis - Last Filed: 12/03/23 12:53> History of Present Illness Chief Complaint: Back Narrative Narrative: 58-year-old female presents with right-sided low back pain that started 3 weeks ago after she lifted a heavy safe off the ground. She felt immediate pain in the right low back and buttock. Over the next few days it started radiating down the back of her right thigh and around the front of the hobbs into the great toe. She has constant pain but it becomes sharp with movement and she cannot find a comfortable position. She has no saddle anesthesia or bladder bowel incontinence. No weakness or paresthesias. She had lumbar x-rays on November 24 at her primary care office which were normal other than mild arthritis. She is taking Tylenol, Aleve and Flexeril without improvement. PFS <JESSI Davis - Last Filed: 12/03/23 12:53> [facility] Medical History Abnormal Pap smear of cervix Anxiety and depression Back pain Fibrocystic breast changes of both breasts GERD (gastroesophageal reflux disease) HTN (hypertension) Home Medications ?Medication ?Instructions ?Recorded ?Last Taken ?Type trazodone 100 mg tablet 100 mg PO QHS PRN 07/15/22 Unknown History hydrocodone-acetaminophen 5-325mg 1 tab PO Q4H PRN PRN Pain 2 days 09/07/22 Unknown Rx 5mg-325mg #15 TABLETS naproxen 500 mg tablet 500 mg PO BID #14 tabs 09/07/22 Unknown Rx hydrocodone-acetaminophen 5-325mg 1 tab PO Q6H PRN PRN Pain 5 days 12/03/23 Unknown Rx 5mg-325mg #20 TABLETS prednisone 20 mg tablet 40 mg (2 x 20 mg) PO DAILY 5 days 12/03/23 Unknown Rx #10 tabs Allergy/AdvReac Type Severity Reaction Status Date / Time No Known Allergies Allergy Verified 09/07/22 17:09 Family History Mother Diabetes Hypertension CVA (cerebral vascular accident) Grandmother Breast cancer Surgical History History of ankle surgery History of bladder surgery History of section S/P appendectomy S/P tonsillectomy Status post colposcopy Social History Smoking Status: Never smoker alcohol intake: current details: struggled for several years, resarted x6 months, none for few weeks substance use type: does not use caffeine: Yes what type of physical activity do you participate in: none seatbelt use: sometimes do you feel safe at home: Yes additional social history: Single ROS <JESSI Davis - Last Filed: 12/03/23 12:53> ROS ED ROS Narrative Constitutional: Negative for fever, chills : Negative for dysuria, frequency. Neuro: Negative for motor/sensory dysfunction. Musc: Negative for joint pain, swelling, trauma. EXAM <JESSI aDvis - Last Filed: 12/03/23 12:53> Physical Exam Narrative Exam Narrative: CONST: Patient sitting in no acute distress. EYES: Normal inspection. NECK: Normal inspection. Back: Normal inspection, no midline tenderness. Tender over right gluteal muscles. SKIN: Color normal, no rash, warm, dry, intact. EXTREMITIES: Normal appearance, no pedal edema. 5/5 strength in bilateral hip flexion, knee flexion/extension, DF/PF. Normal sensation. 2+ DP pulses. NEURO: Alert and answering questions appropriately. PSYCH: Normal affect. Const Vital Signs: 12/03/23 12:12 Temperature 96.7 F L Temperature Source Temporal Pulse Rate 91 Respiratory Rate 22 H Blood Pressure 147/131 H Blood Pressure Mean 136 Pulse Ox 96 Oxygen Delivery Method Room Air <Dr. Sheldon Wolff MD - Last Filed: 12/03/23 13:08> Physical Exam Const Vital Signs: 12/03/23 12:12 Temperature 96.7 F L Temperature Source Temporal Pulse Rate 91 Respiratory Rate 22 H Blood Pressure 147/131 H Blood Pressure Mean 136 Pulse Ox 96 Oxygen Delivery Method Room Air MDM <JESSI Davis - Last Filed: 12/03/23 12:53> MDM MDM Narrative Medical decision making narrative: History gathered from: Patient and spouse Differential: Sciatica, lumbar radiculopathy, no signs of cauda equina syndrome Patient has back pain that started after bending and lifting. It is consistent with a right L4-L5 radiculopathy. She is neurovascularly intact. She showed me lumbar x-rays on November 25, 2023 on her phone which showed no acute findings. She has no red flag signs concerning for carotis colitis syndrome and does not require emergent MRI. She was treated with IM Toradol, morphine, and first dose of p.o. prednisone. I prescribed prednisone burst for home x 5 days. I discussed she should follow-up with her primary care she will likely need physical therapy or an MRI. She was discharged in stable condition. <Dr. Sheldon Wolff MD - Last Filed: 12/03/23 13:08> [facility] Narrative Medical decision making narrative: History gathered from: Patient and spouse Differential: Sciatica, lumbar radiculopathy, no signs of cauda equina syndrome Patient has back pain that started after bending and lifting. It is consistent with a right L4-L5 radiculopathy. She is neurovascularly intact. She showed me lumbar x-rays on November 25, 2023 on her phone which showed no acute findings. She has no red flag signs concerning for carotis colitis syndrome and does not require emergent MRI. She was treated with IM Toradol, morphine, and first dose of p.o. prednisone. I prescribed prednisone burst for home x 5 days. I discussed she should follow-up with her primary care she will likely need physical therapy or an MRI. She was discharged in stable condition. I have personally performed a face to face assessment of the patient and have reviewed the OTILIA Note. I performed a substantive portion of the visit including all aspects of the following. My barrera findings include: History is 58-year-old female no prior back surgery. 2 to 3 years ago she did have back injections for back pain. The last 2 to 3 weeks she has had lower back pain radiating down her right buttock and into her leg with some tingling. No bowel or bladder incontinence. No retention. No fever. Exam is [well-appearing 58-year-old female complain of pain. Vital signs stable afebrile blood pressure is elevated due to the pain. H EENT exam unremarkable. Neck nontender. Lungs clear. Heart regular rhythm no murmur. Abdomen soft nontender. Moving all 4 extremities. 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 Normal dorsi plantarflexion. Can lift either leg off the bed. No cauda equina. No saddle anesthesia. She has slight decrease sensation on lateral aspect of her right lower leg. Back exam she has right SI tenderness but no lumbar tenderness no signs of trauma or redness. Neurologically she is awake and alert. Again no cauda equina.] Medical Decision Making [58-year-old history and exam are consistent with lumbar radiculopathy probably L4-L5. She has had plain films done at [facility] but no MRI recently. She needs an MRI but they are not available today I checked in our MRI staff has already gone home for the day. Patient was treated with IM injections of pain medications. Placed on prednisone 40 mg a day for 10 days. Outpatient pain medication and follow-up with primary care physician to get an MRI of her lumbar spine for possible degenerative disc disease and radiculopathy. She knows to return if weakness or bowel or bladder incontinence or retention.] Other additions or changes: [None] Discharge Plan Triage Chief Complaint: Back ED Midlevel Provider: Sherrill Garcia ED Provider: Sheldon Wolff Dx/Rx/DC Orders Clinical Impression: Acute lumbar radiculopathy Instructions: Back Basics: A Healthy Spine Prescriptions: New prednisone 20 mg tablet 40 mg PO DAILY 5 Days Qty: 10 0RF hydrocodone-acetaminophen 5-325 mg tablet 1 tab PO Q6H PRN PRN (Reason: Pain) 5 Days Qty: 20 0RF No Action trazodone 100 mg tablet 100 mg PO QHS PRN hydrocodone-acetaminophen [hydrocodone-acetaminophen] 5-325 mg tablet 1 tab PO Q4H PRN PRN (Reason: Pain) 2 Days Qty: 15 0RF naproxen 500 mg tablet 500 mg PO BID Qty: 14 0RF Primary Care Provider: Chepe Biswas Referrals: Chepe Biswas DO [Primary Care Provider] - Activity Restrictions/Additional Instructions: You can continue Tylenol 1000 mg every 6 hours as needed in addition to the prescribed medications. Please follow-up closely with your primary care doctor. You may need physical therapy or an MRI to further evaluate this problem. Print Language: Hebrew
[2023-12-03 13:05] VITALS: BP 149/86; PULSE 78; RESP 19; TEMP 36.4; O2SAT 100
== END 2023-12-03 13:06 | disposition home or self-care (01) ==
PROVIDERS: Emergency Provider Emergency Medicine; PCP Student in an Organized Health Care Education/Training Program; Visit Provider Emergency Medicine
DX: M54.16 Radiculopathy, lumbar region (principal)
CPT/HCPCS: 96372; 99283

== ENCOUNTER → 2023-12-13 | Outpatient (CLI) | payer MEDICARE, SELFPAY ==
--- NOTE | 2023-12-13 16:49 | MRI_ITS ---
STUDY: MRI LUMBAR SPINE WITHOUT CONTRAST REASON FOR EXAM: Female, 58 years old. RADICULOPATHY TECHNIQUE: Standardized fat and water weighted pulse sequences were obtained in the sagittal and axial planes. COMPARISON: None FINDINGS: T12-L1: Normal endplates. Normal disc height, hydration and morphology. Normal bilateral facet joints. Normal central canal and bilateral lateral recesses. Normal bilateral intervertebral neural foramina. Normal lumbar lordosis. There is a dextroscoliosis of the lumbar spine. Normal conus medullaris that terminates at the L1 level . L1-2: Disc bulge. Anterior spurring. Normal bilateral facet joints. Normal central canal and bilateral lateral recesses. Normal bilateral intervertebral neural foramina. L2-3: Disc space narrowing on the left. Disc bulge and spurring. Facet spurring. Mild canal stenosis. Neural foramina are patent L3-4: Disc space narrowing with endplate change. Disc bulge and spurring with a right paracentral disc extrusion extending inferior to the disc space, series 7 image 8. Facet spurring and ligamentum flavum hypertrophy. Moderate canal stenosis. Left greater than right foraminal narrowing. L4-5: Disc bulge with right paracentral/foraminal disc protrusion, series 10 image 12. Facet spurring and ligamentum flavum hypertrophy. Moderate canal stenosis. Right foraminal narrowing and encroachment. L5-S1: Normal endplates. Normal disc height, hydration and morphology. Mild spurring of the bilateral facet joints. Normal central canal and bilateral lateral recesses. Normal bilateral intervertebral neural foramina. Normal visualized sacral ala. Normal visualized paraspinous soft tissue structures. MRI/Spine Lumbar (Routine) IMPRESSION: Degenerative change with disc herniations, canal stenosis, and foraminal narrowing. Electronically Signed: Capo Sung MD at 19:15 EDT ,
== END | disposition home or self-care (01) ==
LOC: MRI 16:40
PROVIDERS: PCP Student in an Organized Health Care Education/Training Program; Referring Provider Student in an Organized Health Care Education/Training Program; Visit Provider Student in an Organized Health Care Education/Training Program
DX: M54.16 Radiculopathy, lumbar region (principal); M54.41 Lumbago with sciatica, right side; M48.26 Kissing spine, lumbar region; M51.36 Other intervertebral disc degeneration, lumbar region; R26.9 Unspecified abnormalities of gait and mobility; M62.830 Muscle spasm of back
CPT/HCPCS: 72148

== ENCOUNTER 2024-09-27 12:00 | Day surgery (SDC) | payer MEDICARE, SELFPAY ==
--- NOTE | 2024-09-24 08:32 | EKG12_ITS ---
Test Reason : PRE OP Blood Pressure : */* mmHG Vent. Rate : 68 BPM Atrial Rate : 68 BPM P-R Int : 170 ms QRS Dur : 128 ms QT Int : 424 ms P-R-T Axes : 35 12 46 degrees QTcB Int : 450 ms Normal sinus rhythm Right bundle branch block Abnormal ECG Confirmed by MAGO LO, ADRIANNA ([id number]), supervising editor news reel JOHN ACOSTA [id number]) on 09/24/2024 2:01:00 PM Referred By: Perlita Lyman Confirmed By: ADRIANNA MERCEDES MD
[2024-09-24 09:24] LABS: Hemoglobin 14.5 g/dL (12.0-15.0); Mean Corp Hgb Conc 34.5 g/dL (32-36); Mean Corpuscular Hgb 30.7 pg (27.0-32.0); Mean Corpuscular Volume 88.8 fL (81-99); Mean Platelet Vol. 9.1 fl (6.2-12.0); Platelet Count 276 K/mm3 (150-450); RBC Distribution Width SD 39.5 fl (35.1-43.9); Red Blood Count 4.73 M/mm3 (4.2-5.4); White Blood Count 4.7 K/mm3 (4.4-11.0)
[2024-09-24 10:15] LABS: ALB/GLOB Ratio 1.8 RATIO (0.9-2.4); AST(SGOT) 20 U/L (<=31); Alanine Aminotransfer ALT/SGPT 16 U/L (<=34); Albumin, Serum 4.2 g/dL (3.5-5.0); Alkaline Phosphatase 47 U/L (35-104); Anion Gap 11 (5-15); BUN 9 mg/dL (4-19); BUN/Creat Ratio 12.4 RATIO (10-20); Calcium,Total 8.9 mg/dL (7.6-11.0); Carbon Dioxide 22.8 mmol/L (21.0-32.0); Chloride 107 mmol/L (98-108); Creatinine, Serum 0.72 mg/dL (0.70-1.20); EST Glomerular Filtration Rate 96 (>60); Globulin 2.3 g/dL (2.2-4.2); Glucose 95 mg/dL (70-99); Potassium 3.5 mmol/L (3.3-5.1); Protein, Total 6.5 g/dL (5.9-8.4); Sodium Level 141 mmol/L (133-145); Total Bilirubin 0.24 mg/dL (0.00-1.30)
--- NOTE | 2024-09-24 17:36 | PAT.ANE_ITS ---
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 When Was Last Pacemaker Check QUESTION #4 FULL TEXT: You/Your Family Experience fever (hyperthermia) with Anesthesia Last Oral Intake Last Oral intake: Last Oral Intake NPO since Meds taken in AM with sips of water? Meds patient instructed to take am of surgery PONV PONV - electrician control equipment: PONV - electrician control equipment Female Yes 09/18/24 14:53 HX of Motion Sickness No 09/18/24 14:53 HX of N/V After Surgery Yes 09/18/24 14:53 Non-Smoker Yes 09/18/24 14:53 Duration of Surgery greater No 09/18/24 14:53 than 60 minutes Number of Risk Factors 3 09/18/24 14:53 PONV Score Moderate Risk 09/18/24 14:53 Height & Weight Height & Weight: Anesthesia: Height & Weight Height 5 ft 2 in 12/03/23 12:12 Respiratory Assessment Respiratory Assessment - electrician control equipment: Respiratory Tract Infection Hx - electrician control equipment Hx Respiratory Tract Infection No 09/18/24 14:53 STOP Sleep Apnea STOP Sleep Apnea - electrician control equipment: STOP Sleep Apnea - electrician control equipment Hx Hypertension No 09/18/24 14:53 Hx Sleep Apnea No 09/18/24 14:53 CPAP No 09/17/13 21:25 BIPAP No 09/17/13 21:25 Do you snore loudly (louder No 09/18/24 14:53 than talking or can be heard Do you often feel tired/ No 09/18/24 14:53 fatigued/ sleepy during daytime? Has anyone observed you stop No 09/18/24 14:53 breathing during sleep? STOP Results Negative 09/18/24 14:53 QUESTION #5 FULL TEXT : Do you snore loudly (louder than talking or can be heard through closed doors)? 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 Specify any problems Hx of Preganancy in last 3 N/A 09/18/24 14:53 Months Nurse Filling Out Transfusion NBUCHER 09/18/24 14:53 & Questions: Date: 09/18/24 09/18/24 14:53 Time: 14:54 09/18/24 14:53 Patient unable to answer at this time (ie. confused, unrespo /Reproduction History /Reproductive History - electrician control equipment: /Reproductive Hx- electrician control equipment Hx Now No 09/18/24 14:53 Gestational Age (in weeks): EDC: Hx Hx Para Hx Section SAB No 09/18/24 14:53 PFSH Medical History (Updated 09/18/24 @ 15:03 by Angelica Meadows) Wears glasses PTSD (post-traumatic stress disorder) Depression Anxiety Interstitial cystitis Difficulty swallowing History of IBS Non-smoker Leg cramps Abnormal Pap smear of cervix Fibrocystic breast changes of both breasts HTN (hypertension) GERD (gastroesophageal reflux disease) Back pain Anxiety and depression Home Medications ?Medication ?Instructions ?Recorded ?Last Taken ?Type trazodone 100 mg tablet 100 mg PO QHS PRN sleep 06/21 12/10 Unknown History naproxen 500 mg tablet 500 mg PO BID #14 tabs 09/07 Unknown Rx albuterol sulfate 90 mcg/actuation 2 puff inhalation Q 6H PRN PRN 09/18/24 Unknown History aerosol inhaler wheezing biotin 2,500 mcg capsule 2,500 mcg PO DAILY 09/18/24 Unknown History cholecalciferol (vitamin D3) 25 25 mcg PO DAILY Unknown History mcg (1,000 unit) capsule (Vitamin D3) estradiol 0.01% (0.1 mg/gram) 1 g vaginal DAILY Unknown History vaginal cream lorazepam 0.5 mg tablet 0.5 mg PO QHS 09/18/24 Unkno wn History multivitamin (Daily Multi-Vitamin 1 tab PO DAILY 09/18 Unknown History tablet) topiramate 100 mg tablet 100 mg PO QHS 09/18/24 Unkno wn History Allergy/AdvReac Type Severity Reaction Status Date / Time No Known Allergies Allergy Verified 09/18/24 14:50 Family History Mother Diabetes Hypertension CVA (cerebral vascular accident) Grandmother Breast cancer Surgical History (Updated 09/18/24 @ 15:03 by Angelica Meadows) History of tonsillectomy History of biopsy History of surgery on arm History of endometrial ablation History of esophagogastroduodenoscopy (EGD) History of colonoscopy Status post colposcopy History of ankle surgery History of bladder surgery S/P appendectomy S/P tonsillectomy History of section Social History Smoking Status: Never smoker alcohol intake: current details: struggled for several years, resarted x6 months, none for few weeks substance use type: does not use caffeine: Yes what type of physical activity do you participate in: none seatbelt use: sometimes do you feel safe at home: Yes additional social history: Single Audit: Pertinent Findings Pertinent Findings EKG Perinent findings: 09/24/2024. Normal sinus rhythm. Right bundle branch block. Rate 68 bpm Recommendation Anesthesia Recommendation Anesthesia recommendation: OPTIMIZED for anesthesia
[2024-09-27] VITALS (11 sets, daily range): BP systolic 119–150; BP diastolic 73–110; PULSE 62–78; RESP 10–20; TEMP 36.6–36.7; O2SAT 93–100; BMI 23.1
--- NOTE | 2024-09-27 12:38 | PCM.PRE.AN2 ---
ASA Classification* ASA Classification ASA Classification: 2 Assessment & Plan Anesthesia* Anesthesia Assessment Anesthesia Assessment: Discussed sedation and/or anesthesia options, risks, benefits, and alternatives with patient/parents/legal guardian/POA. Questions invited. The patient/parents/legal guardian/POA seems to understand and agrees to proceed with anesthesia plan. Reviewed the physical assessment, medical history, allergy history and patient home medications list prior to surgery/procedure/anesthetic and documented any changes. Performed airway and anesthesia risk assessments. Anesthesia Type Anesthesia Type: MAC History Source History Obtained from:: Patient and Chart Anesthesia Focused Assessment* Temperature: 97.8 F Pulse Rate: 66 Blood Pressure: 150/87 Respiratory Rate: 18 Pulse Ox: 99 Oxygen Delivery Method: Room Air Airway Assessment Mouth opens: >3 cm Mallampati Score: I Teeth Condition: Intact (Patient has a permanent retainer wire top and bottom.) Neck Range of motion (ROM): Full ROM Focused Labs Anesthesia Preop lab: CBC WBC 4.7 K/mm3 (4.4-11.0) 09/24/24 08:46 09/24/24 RBC 4.73 M/mm3 (4.2-5.4) 09/24/24 08:46 09/24/24 Hgb 14.5 g/dL (12.0-15.0) 09/24/24 08:46 09/24/24 Hct 42.0 % (37-47) 09/24/24 08:46 09/24/24 Plt Count 276 K/mm3 (150-450) 09/24/24 08:46 09/24/24 CHEMISTRY Potassium 3.5 mmol/L (3.3-5.1) 09/24/24 08:46 09/24/24 Sodium 141 mmol/L (133-145) 09/24/24 08:46 09/24/24 BUN 9 mg/dL (4-19) 09/24/24 08:46 09/24/24 Creatinine 0.72 mg/dL (0.70-1.20) 09/24/24 08:46 09/24/24 Glucose 95 mg/dL (70-99) 09/24/24 08:46 09/24/24 TSH 1.10 uIU/mL (0.358-3.74) 09/21/18 13:48 09/21/18 COAG Pre-Assessment Diagnosis/Proposed Procedure Planned Operative Procedure(s): Hysteroscopy, Dilation and Curettage Anesthesia History 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 When Was Last Pacemaker Check QUESTION #4 FULL TEXT: You/Your Family Experience fever (hyperthermia) with Anesthesia Last Oral Intake Last Oral intake: Last Oral Intake NPO since 12:00 09/27/24 12:22 Meds taken in AM with sips of No 09/27/24 12:22 water? Meds patient instructed to take am of surgery PONV PONV - food storeroom clerk: PONV - food storeroom clerk Female Yes 09/18/24 14:53 HX of Motion Sickness No 09/18/24 14:53 HX of N/V After Surgery Yes 09/18/24 14:53 Non-Smoker Yes 09/18/24 14:53 Duration of Surgery greater No 09/18/24 14:53 than 60 minutes Number of Risk Factors 3 09/18/24 14:53 PONV Score Moderate Risk 09/18/24 14:53 Height & Weight Height & Weight: Anesthesia: Height & Weight Height 5 ft 2 in 09/27/24 12:22 Weight: 57.4 kg 09/27/24 12:22 Body Mass Index (BMI) 23.1 09/27/24 12:22 Respiratory Assessment Respiratory Assessment - food storeroom clerk: Respiratory Tract Infection Hx - food storeroom clerk Hx Respiratory Tract Infection No 09/18/24 14:53 STOP Sleep Apnea STOP Sleep Apnea - food storeroom clerk: STOP Sleep Apnea - food storeroom clerk Hx Hypertension No 09/18/24 14:53 Hx Sleep Apnea No 09/18/24 14:53 CPAP No 09/17/13 21:25 BIPAP No 09/17/13 21:25 Do you snore loudly (louder No 09/18/24 14:53 than talking or can be heard Do you often feel tired/ No 09/18/24 14:53 fatigued/ sleepy during daytime? Has anyone observed you stop No 09/18/24 14:53 breathing during sleep? STOP Results Negative 09/18/24 14:53 QUESTION #5 FULL TEXT : Do you snore loudly (louder than talking or can be heard through closed doors)? 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 Specify any problems Hx of Preganancy in last 3 N/A 09/18/24 14:53 Months Nurse Filling Out Transfusion NBUCHER 09/18/24 14:53 & Questions: Date: 09/18/24 09/18/24 14:53 Time: 14:54 09/18/24 14:53 Patient unable to answer at this time (ie. confused, unrespo /Reproduction History /Reproductive History - food storeroom clerk: /Reproductive Hx- food storeroom clerk Hx Now No 09/18/24 14:53 Gestational Age (in weeks): EDC: Hx Hx Para Hx Section SAB No 09/18/24 14:53 PFSH Medical History Wears glasses PTSD (post-traumatic stress disorder) Depression Anxiety Interstitial cystitis Difficulty swallowing History of IBS Non-smoker Leg cramps Abnormal Pap smear of cervix Fibrocystic breast changes of both breasts HTN (hypertension) GERD (gastroesophageal reflux disease) Back pain Anxiety and depression Home Medications ?Medication ?Instructions ?Recorded ?Last Taken ?Type trazodone 100 mg tablet 100 mg PO QHS PRN sleep 07/15/22 Unknown History naproxen 500 mg tablet 500 mg PO BID #14 tabs 09/07/22 Unknown Rx albuterol sulfate 90 mcg/actuation 2 puff inhalation Q6H PRN PRN 09/18/24 Unknown History aerosol inhaler wheezing biotin 2,500 mcg capsule 2,500 mcg PO DAILY 09/18/24 Unknown History cholecalciferol (vitamin D3) 25 25 mcg PO DAILY 09/18/24 Unknown History mcg (1,000 unit) capsule (Vitamin D3) estradiol 0.01% (0.1 mg/gram) 1 g vaginal DAILY 09/18/24 Unknown History vaginal cream lorazepam 0.5 mg tablet 0.5 mg PO QHS 09/18/24 Unknown History multivitamin (Daily Multi-Vitamin 1 tab PO DAILY 09/18/24 Unknown History tablet) topiramate 100 mg tablet 100 mg PO QHS 09/18/24 Unknown History Allergy/AdvReac Type Severity Reaction Status Date / Time No Known Allergies Allergy Verified 09/27/24 12:22 Family History Mother Diabetes Hypertension CVA (cerebral vascular accident) Grandmother Breast cancer Surgical History History of tonsillectomy History of biopsy History of surgery on arm History of endometrial ablation History of esophagogastroduodenoscopy (EGD) History of colonoscopy Status post colposcopy History of ankle surgery History of bladder surgery S/P appendectomy S/P tonsillectomy History of section Social History Smoking Status: Never smoker alcohol intake: current details: struggled for several years, resarted x6 months, none for few weeks substance use type: does not use caffeine: Yes what type of physical activity do you participate in: none seatbelt use: sometimes do you feel safe at home: Yes additional social history: Single Review of Systems (Anesthesia) ROS Narrative System reviewed and no additional complaints, except as documented.
--- NOTE | 2024-09-27 13:45 | EMB_PTH ---
PATIENT: JAM MUNOZ [place] [facility] [id number] AGE/SX: 59/F ROOM: RE09/27/[address]: Dr. Perlita Lyman DO : 1965 BED: DIS: 09/27/2024 SPEC #: [id number] RECD: 09/27/24 15:10 STATUS: RAMONA REShira #: [id number] SHAWNA: 09/27/24 13:[address]: Perlita Lyman DEPT: SURGICAL PATHOLOGY RECD BY: Arjun Wilkins ENTERED: 09/27/24 15:10 SP TYPE: ENDOM BX/C OTHR DR: Dr. Chepe Biswas, Tissues: A - Endometrium, NOS Procedures: Surgery Specimen Level IV HEADER OPERATION: Hysteroscopy, D&C PRE-OP DIAGNOSIS: Post menopausal bleeding, thickened endometrium TISSUE SUBMITTED: A- Endometrial curettings MICROSCOPIC DIAGNOSIS A. Endometrium curettage: * Inactive endometrium MICROSCOPIC DESCRIPTION Slides are reviewed. GROSS DESCRIPTION A. Received in formalin in a container labeled with the patient's name, date of , and endometrial curettings are multiple red-loving fragments of soft tissue admixed with blood and mucus measuring 1.5 x 1.0 x 0.2 cm in aggregate. Submitted in toto in A1. SMB 09/28/2024 CPT:07279
[2024-09-27] MEDS: Lidocaine 1%/Epi 1:200 (30ml) 30 ML AMPUL (14:10)
--- NOTE | 2024-09-27 14:19 | DCINST_ITS ---
Discharge Instructions Diet Discharge Diet: No restrictions DC O2, CPAP, BIPAP needs Home O2 Discharge instructions: No Dressing / Incision Discharge Activity: May Drive (once you are more than 24 hours out from surgery) and May Shower (once you are more than 24 hours out from surgery) May resume sexual activity in: 1 week (nothing in the vagina and no soaking in water) Weight Bearing Status: Weight bearing as tolerated Lifting Restrictions: none Dressing / Incision Call your doctor if you observe: Fever of 101 or Higher, Using more than 1 pad per hour, Shortness of breath, Dizziness, Chest pain, Increased palpitations (irregular heartbeat), Calf discomfort and Uncontrolled pain Follow Up Care Please Follow Up With: Perlita Lyman DO When: 1 week follow up Test Results: Test results from this visit will be discussed in further detail at your follow- up appointment, if applicable. Discharge Plan Admission Primary Reason for Your Visit: surgery Attending Provider: Perlita Lyman Primary Care Provider: Chepe Biswas Instructions Print Language: Slovenian Discharge Orders/Prescriptions Prescriptions: Continued trazodone 100 mg tablet 100 mg PO QHS PRN (Reason: sleep) naproxen 500 mg tablet 500 mg PO BID Qty: 14 0RF lorazepam 0.5 mg tablet 0.5 mg PO QHS Patient Comments: [NO ORIGINAL SIG] topiramate 100 mg tablet 100 mg PO QHS biotin 2,500 mcg capsule 2,500 mcg PO DAILY cholecalciferol (vitamin D3) [Vitamin D3] 25 mcg (1,000 unit) capsule 25 mcg PO DAILY multivitamin [Daily Multi-Vitamin] Tablet 1 tab PO DAILY albuterol sulfate 90 mcg/actuation HFA aerosol inhaler 2 puff INHALATION Q6H PRN PRN (Reason: wheezing) estradiol 0.01 % (0.1 mg/gram) cream 1 g vaginal DAILY Other Ambulatory Orders: 12 Lead EKG (Routine) Timeframe: [id number] Location: None Selected Ordered By: Dr. Perlita Lyman Referrals / Follow Up: Chepe Biswas DO [Primary Care Provider] - Disposition Disposition (needs filled in before D/C Order can be placed): Home, Self Care
--- NOTE | 2024-09-27 14:23 | PCM.POST.ANE ---
Anesthesia: Postop Eval I Current Vital Signs Temperature: 97.8 F Pulse Rate: 72 Blood Pressure: 139/82 Respiratory Rate: 18 Pulse Ox: 96 Assessment Airway patent: Yes Spontaneous unlabored respirations: Yes nausea: No Vomiting: No Anesthesia Complication: No Fluid Hydration Crystalloid volume administer (ml): 600 Total IV fluid infused: 600 Progress Note Anesthesia document: Postop Eval 1 completed: Yes
--- NOTE | 2024-09-27 14:40 | OP.PCM_ITS ---
Problems Associated Problem List Diagnoses (1) Postmenopausal bleeding: (2) Thickened endometrium: Operative Report (Standard) Operative Information Date of Procedure: 09/27/24 Pre-Operative Diagnosis: PMB, Thickened endometrium on pelvic ultrasound Post-Operative Diagnosis: PMB Surgery/Procedure Performed: Hysteroscopy, D&C patient financial advocate: No Type of Anesthesia: MAC RN Documented Start/Stop Times: Operation Date: 09/27/24 13:45 Case Time Into Pre-Op 09/27/24 12:04 Out of Pre-Op 09/27/24 13:39 Anesthesia Start 09/27/24 13:43 Into Room 09/27/24 13:43 Procedure Start 09/27/24 13:58 Procedure End 09/27/24 14:13 Anesthesia End 09/27/24 14:18 Out of Room 09/27/24 14:18 Into Recovery 09/27/24 14:20 Procedure Start Time: 13:58 Procedure Stop Time: 14:13 Select all DRAINS/GRAFTS/IMPLANTS that apply: None Special Medications: None Estimated Blood Loss: < 20 mL Fluids Replaced: See anesthesia record Specimen collected: Yes Description of specimen(s) removed: Endometrial curetttings Description of surgery: The patient was taken to the operating room where MAC anesthesia was found to be adequate. She was prepped and draped in the dorsal lithotomy position using yellowfin stirrups. A weighted speculum was placed in the vagina to expose the cervix. The anterior lip of the cervix was grasped with a single-tooth tenaculum. The cervix was easily serially dilated to accommodate the Symphion hysteroscope. The Symphion hysteroscope was advanced into the uterus, and the uterine cavity was distended with normal saline. Bilateral tubal ostia were visualized. No polyps or lesions were noted within the uterine cavity. The endometrial lining was thin and atrophic appearing. The hysteroscope was slowly removed. A sharp curettage was performed for scant tissue. The endometrial curettings were sent to pathology for review. Bleeding was scant. All instruments were removed from the vagina. A vaginal sweep was performed. Sponge counts were correct. The patient was taken to the recovery room in stable condition. Surgical Findings: Thin, atrophic appearing endometrium without lesions Complications Complications: No Admit VTE Documentation VTE Present on Admission: No VTE Mechan Device Prophylaxis: SCD's
--- NOTE | 2024-09-27 15:35 | SUR.PHASEI ---
localized redness noted to right arm proximal to iv, patient educated on histamine response from medication. no pain noted at arm.
[2024-09-27] MEDS: Ibuprofen 600 MG Tablet PO (15:44)
--- NOTE | 2024-09-27 19:14 | POSTOPAN2_ITS ---
Anesthesia Postop Eval I Sum Postop Eval Completion status Anesthesia document: Postop Eval 1 completed: Yes Anesthesia Postop Eval I Summary Anesthesia Postop Eval I Summary: Anesthesia Postop Eval I: Assessment Summary Airway patent Yes 09/27/24 14:23 COATING AND EMBOSSING UNIT OPERATOR.[email or web address] Spontaneous unlabored Yes 09/27/24 14:23 COATING AND EMBOSSING UNIT OPERATOR.TNES respirations Mental status nausea No 09/27/24 14:23 COATING AND EMBOSSING UNIT OPERATOR.TNES Vomiting No 09/27/24 14:23 COATING AND EMBOSSING UNIT OPERATOR.[email or web address] Anesthesia Postop Eval I: Fluid Summary Crystalloid volume administer 600 09/27/24 14:23 COATING AND EMBOSSING UNIT OPERATOR.TNES (ml) Colloids volume administered ( ml) Blood Product volume administered (ml) Total IV fluid infused 600 09/27/24 14:23 COATING AND EMBOSSING UNIT OPERATOR.TNES Anesthesia Postop Eval I: Summary Notes Anesthesia Complication No 09/27/24 14:23 COATING AND EMBOSSING UNIT OPERATOR.TNES Anesthesia Complication Comment: Post-operative progress note Anesthesia: Postop Eval II Evaluation Mental status: Awake and Calm Pain Level: 1 nausea: No Vomiting: No Complications Anesthesia Complication: No
--- NOTE | 2024-09-27 19:14 | PCM.POSTANE2 ---
Anesthesia Postop Eval I Sum Postop Eval Completion status Anesthesia document: Postop Eval 1 completed: Yes Anesthesia Postop Eval I Summary Anesthesia Postop Eval I Summary: Anesthesia Postop Eval I: Assessment Summary Airway patent Yes 09/27/24 14:23 [email or web address] Spontaneous unlabored Yes 09/27/24 14:23 [email or web address] respirations Mental status nausea No 09/27/24 14:23 [email or web address] Vomiting No 09/27/24 14:23 [email or web address] Anesthesia Postop Eval I: Fluid Summary Crystalloid volume administer 600 09/27/24 14:23 [email or web address] (ml) Colloids volume administered ( ml) Blood Product volume administered (ml) Total IV fluid infused 600 09/27/24 14:23 [email or web address] Anesthesia Postop Eval I: Summary Notes Anesthesia Complication No 09/27/24 14:23 [email or web address] Anesthesia Complication Comment: Post-operative progress note Anesthesia: Postop Eval II Evaluation Mental status: Awake and Calm Pain Level: 1 nausea: No Vomiting: No Complications Anesthesia Complication: No
== END 2024-09-27 17:10 | disposition home or self-care (01) ==
LOC: SDC 12:02 → AC 12:03
PROVIDERS: PCP Student in an Organized Health Care Education/Training Program; Referring Provider Obstetrics & Gynecology; Visit Provider Obstetrics & Gynecology
PROC: 0UB98ZZ Excision of Uterus, Via Natural or Artificial Opening Endoscopic (ICD-10-PCS; CPT 58558; principal; 2024-09-27 13:35)
DX: N95.0 Postmenopausal bleeding (principal); R93.89 Abnormal findings on diagnostic imaging of other specified body structures; Z79.51 Long term (current) use of inhaled steroids
CPT/HCPCS: 58558; 00952; 36415; 80053; 85027; 86850; 86900; 86901; 88305; 93005; A4216; J2405